=== PATIENT | female | born 1975 | race Caucasian/White ===

== ENCOUNTER 2020-02-02 10:37 | Inpatient (IN) | payer OTHER ==
--- NOTE | 2020-02-02 11:05 | BHS.RME ---
Substance Use & Tx History - Substance Use History Heroin Substance amount: 4-6 BAGS Frequency of use: Daily Substance route: Injection (ex: intravenous or skin popping) Date of Last Use: 02/01/20 Nicotine Substance amount: 5 CIGGS Frequency of use: Daily Substance route: Smoking Date of Last Use: 02/02/20 - Last Treatment Date of last treatment: 01/03-01/07/20 LEFT AMA Treatment type: Substance Use Disorder (JASPER) Where was last treatment: Detox Physical/Psych/Mental Status - Behavior General Behavior: Increased activity (restlessness, agitation) Eye Contact: Normal - Cooperativeness Cooperativeness: Cooperative - Thinking Thought Processes: Tight, Logical, Goal Directed - Physical Health Problems Is patient presently having any pain?: No Does patient presently have any injuries (include location): No Does patient currently have a fever: No Is patient : No COWS - Scale Resting Pulse: 1= [place] 81-100 Sweatin= Chills/Flushing Restless Observation: 1= Difficult to Sit Still Pupil Size: 1= Pupils >than Normal Bone or Joint Aches: 1= Mild Discomfort Runny Nose/ Eye Tearin= Runny Nose/Eyes GI Upset > 30mins: 0= None Tremor Observation: 1= Tremor [place], Not Seen Yawning Observation: 2= >3x During Session Anxiety or Irritability: 2=Irritable/Anxious Goose Flesh Skin: 3=Piloerection COWS Score: 15
--- NOTE | 2020-02-02 13:28 | HP ---
COWS - Scale Resting Pulse: 1= [place] 81-100 Sweatin= Chills/Flushing Restless Observation: 1= Difficult to Sit Still Pupil Size: 1= Pupils >than Normal Bone or Joint Aches: 1= Mild Discomfort Runny Nose/ Eye Tearin= Runny Nose/Eyes GI Upset > 30mins: 0= None Tremor Observation: 1= Tremor [place], Not Seen Yawning Observation: 2= >3x During Session Anxiety or Irritability: 2=Irritable/Anxious Goose Flesh Skin: 3=Piloerection COWS Score: 15 CIWA Score Nausea/Vomitin-No Nausea/No Vomiting Muscle Tremors: 3 Anxiety: 4-Mod. Anxious/Guarded Agitation: 2 Paroxysmal Sweats: 1-Minimal Palms Moist Orientation: 1-Uncertain about Date Tacttile Disturbances: 0-None Auditory Disturbances: 0-None Visual Disturbances: 0-None Headache: 0-None Present CIWA-Ar Total Score: 11 - Admission Criteria OASAS Guidelines: Admission for Medically Managed Detox: Requires at least one of the followin. CIWA greater than 12 2. Seizures within the past 24 hours 3. Delirium tremens within the past 24 hours 4. Hallucinations within the past 24 hours 5. Acute intervention needed for co occurring medical disorder 6. Acute intervention needed for co occurring psychiatric disorder 7. Severe withdrawal that cannot be handled at a lower level of care (continued vomiting, continued diarrhea, abnormal vital signs) requiring intravenous medication and/or fluids 8. Admitting History and Physical - Admission History of Present Illness: 44 y.o. F PMHx of asthma presenting to [facility] for detox. Patient was examined and is in no acute distress. Patient drug use consists of heroin 5 bags a day no overdoses. Xanax 6mg daily. Patient smokes 5 cigarettes a day. - Substance Use History Heroin Substance amount: 4-6 BAGS Frequency of use: Daily Substance route: Injection (ex: intravenous or skin popping) Date of Last Use: 02/01/20 Nicotine Substance amount: 5 CIGGS Frequency of use: Daily Substance route: Smoking Date of Last Use: 02/02/20 - Last Treatment Date of last treatment: 01/03-01/07/20 LEFT AMA Treatment type: Substance Use Disorder (JASPER) Where was last treatment: Detox History Source: Patient Limitations to Obtaining History: No Limitations - Past Medical History [employer]: No: Seizure Cardiovascular: No: HTN, Hyperlipdemia Pulmonary: No: Pneumonia Gastrointestinal: No: GI Bleed Hepatobiliary: No: Hepatitis A, Hepatitis B, Hepatitis C ...LMP: 11/29/19 Psych: Yes: Bipolar - Past Surgical History Past Surgical History: Yes: Hernia Repair (hernia) - Smoking History Smoking history: Current every day smoker Have you smoked in the past 12 months: Yes Aproximately how many cigarettes per day: 10 - Alcohol/Substance Use Hx Alcohol Use: No History of Substance Use: reports: Heroin - Social History Usual Living Arrangement: Yes: With Significant Other ADL: Independent Occupation: unemployed History of Recent Travel: No Admission ROS S - HPI Allergies/Adverse Reactions: Allergies Allergy/AdvReac Type Severity Reaction Status Date / Time No Known Allergies Allergy Verified 01/04/20 11:29 History of Present Illness: 44 y.o. F PMHx of asthma presenting to [facility] for detox. Patient was examined and is in no acute distress. Patient drug use consists of heroin 5 bags a day no overdoses. Xanax 6mg daily. Patient smokes 5 cigarettes a day. - Substance Use History Heroin Substance amount: 4-6 BAGS Frequency of use: Daily Substance route: Injection (ex: intravenous or skin popping) Date of Last Use: 02/01/20 Nicotine Substance amount: 5 CIGGS Frequency of use: Daily Substance route: Smoking Date of Last Use: 02/02/20 - Last Treatment Date of last treatment: 01/03-01/07/20 LEFT AMA Treatment type: Substance Use Disorder (JASPER) Where was last treatment: Detox Exam Limitations: No Limitations - Ebola screening Have you traveled outside of the country in the last 21 days: No Have you had contact with anyone from an Ebola affected area: No Have you been sick,other than usual withdrawal symptoms: No Do you have a fever: No - Review of Systems Constitutional: No Symptoms Reported EENT: denies: Blurred Vision, Double Vision Respiratory: denies: Cough, Shortness of Breath Cardiac: denies: Chest Pain, Lightheadedness GI: denies: Constipated, Diarrhea, Nausea, Vomiting : denies: Burning, Dysuria Musculoskeletal: denies: Muscle Pain, Muscle Weakness Integumentary: reports: No Symptoms Reported Neuro: reports: No Symptoms reported. denies: Headache, Dizziness Endocrine: reports: No Symptoms Reported Hematology: denies: Easy Bleeding Psychiatric: reports: No Sypmtoms Reported, Judgement Intact, Mood/Affect Appropiate, Orientated x3 Patient History - Patient Medical History Hx Asthma: Yes Hx Chronic Obstructive Pulmonary Disease (COPD): No Hx Cardiac Disorders: No Hx Hypertension: No Hx Seizures: No Hx Diabetes: No Hx Gastrointestinal Disorders: No Hx Genitourinary Disorders: No Hx Sexually Transmitted Disorders: No Hx Renal Disease (ESRD): No Hx Depression: Yes Hx Suicide Attempt: No Hx Schizophrenia: Yes - Patient Surgical History Past Surgical History: Yes Hx Section: Yes (IN 2002) Other Surgical History: HERNIA REPAIR AT AGE 19 Anesthesia Reaction: No - PPD History Date: 01/06/20 - Reproductive History Last Menstrual Period: 11/29/19 - Smoking Cessation Smoking history: Current every day smoker Have you smoked in the past 12 months: Yes Aproximately how many cigarettes per day: 10 Hx Chewing Tobacco Use: No Initiated information on smoking cessation: Yes 'Breaking Loose' booklet given: 02/02/20 Admission Physical Exam [facility] - Physical General Appearance: Yes: Within Normal Limits, No Apparent Distress, Nourished, Appropriately Dressed Respiratory: Yes: Within Normal Limits, Chest Non-Tender, Lungs Clear, Normal B reath Sounds, No Accessory Muscle Use Cardiology: Yes: Within Normal Limits, Regular Rhythm, Regular Rate. No: JVD Abdominal: Yes: Within Normal Limits, Normal Bowel Sounds, Non Tender, Flat, Soft Back: Yes: Within Normal Limits, Normal Inspection. No: CVA Tenderness Extremities: Yes: Within Normal Limits, Normal Capillary Refill, Normal Inspection, Normal Range of Motion. No: Swelling Neurological: Yes: Within Normal Limits - Diagnostic (1) Opioid withdrawal Current Visit: No Status: Acute (2) History of bipolar disorder Current Visit: No Status: Chronic Comment: As per self- report. (3) Nicotine dependence Current Visit: No Status: Chronic (4) Asthma Current Visit: Yes Status: Acute Cleared for Admission [facility] - Detox or Rehab [facility] Level of Care: Medically Managed Detox Regimen/Protocol: Methadone Breathalyzer - Breathalyzer Breathalyzer: 0 Vital Signs - Vital Signs Vital signs refused: No Temperature: 96.5 F Pulse Rate: 79 Respiratory Rate: 14 Blood Pressure: 108/70 - Height Height: 1.52 m - Weight Weight: 76.657 kg - BMI Body Mass Index (BMI): 33.0 Urine Drug Screen - Test Device Lot number: [id number] Expiration date: 08/30/21 - Control Is test valid?: Yes - Results Drug screen NEGATIVE: No Urine drug screen results: FEN-Fentanyl, MOP-Opiates, MTD-Methadone, BZO- Benzodiazepines Inpatient Rehab Admission - Rehab Decision to Admit Inpatient rehab admission?: No
[2020-02-02] MEDS ORDERED: MAGNESIUM CITRATE 300 ML BOTTLE PO PRN (13:33)
[2020-02-02] MEDS ORDERED: MAGNESIUM HYDROX 2400MG/30ML ORAL SUSPENSION 30 ML CUP PO PRN (13:33)
[2020-02-02] MEDS ORDERED: ACETAMINOPHEN 325 MG TABLET (FP) PO PRN ×2 (13:33)
[2020-02-02] MEDS ORDERED: MENTHOL/PHENOL 1 EACH UD MM PRN (13:33)
[2020-02-02] MEDS ORDERED: BISMUTH SUBSALICYLATE 524 MG/30 ML UD PO PRN (13:33)
[2020-02-02] MEDS ORDERED: MAG HYDROX/AL HYDROX/SIMETH 30 ML UNIT-DOSE CUP PO PRN (13:33)
[2020-02-02] MEDS ORDERED: diazePAM 5 MG TABLET PO PRN (13:33)
[2020-02-02] MEDS ORDERED: IBUPROFEN 400 MG TABLET (FP) PO PRN (13:33)
[2020-02-02] MEDS ORDERED: cloNIDine HCL 0.1 MG TABLET PO PRN (13:33)
[2020-02-02] MEDS ORDERED: ONDANSETRON *ODT* 4 MG TABLET SL PRN (13:33)
[2020-02-02 13:49] VITALS: BMI 24.2
[2020-02-02] MEDS ORDERED: METHADONE HCL 10 MG TABLET (FOR DETOX USE ONLY) PO ONE (14:00)
[2020-02-02] MEDS: METHOCARBAMOL 500 MG TABLET PO PRN (14:52)
[2020-02-02] MEDS: hydrOXYzine PAMOATE 25 MG CAPSULE (FP) PO SCH ×3 (14:52→22:40)
[2020-02-02] MEDS: NICOTINE POLACRILEX 2 MG GUM BUC PRN (14:52)
--- NOTE | 2020-02-02 15:42 | PN ---
Teaching Attending Note Name of Resident: Fish Osuna ATTENDING PHYSICIAN STATEMENT I saw and evaluated the patient. I reviewed the resident's note and discussed the case with the resident. I agree with the resident's findings and plan as documented. SUBJECTIVE: OBJECTIVE: ASSESSMENT AND PLAN: 44 y.o. F PMHx of asthma presenting to [facility] for detox. Patient was examined and is in no acute distress. Patient drug use consists of heroin 5 bags a day no overdoses. Xanax 6mg daily. Patient smokes 5 cigarettes a day. - Substance Use History Heroin Substance amount: 4-6 BAGS Frequency of use: Daily Substance route: Injection (ex: intravenous or skin popping) Date of Last Use: 02/01/20 Nicotine Substance amount: 5 CIGGS Frequency of use: Daily Substance route: Smoking Date of Last Use: 02/02/20 Imp 1. Opioid withdrawal 2. Sedative use disorder 3. Nicotine dependence 4. Asthma, in remission Plan 1. Methadone detox protocol 2. Valium detox for sedative use disorder 3. Nicotine dependence
[2020-02-02 17:30] LABS: HEMATOCRIT 37.5 % (32.4-45.2); HEMOGLOBIN 12.9 GM/dL (10.7-15.3); MCH 31.4 pg (25.7-33.7); MCHC 34.5 g/dl (32.0-36.0); MEAN PLT VOLUME 7.9 fl (7.5-11.1); PLATELET COUNT 355 K/MM3 (134-434); RBC 4.12 M/mm3 (3.60-5.2); RDW 14.4 % (11.6-15.6); WHITE BLOOD COUNT 5.5 K/mm3 (4.0-10.0)
[2020-02-02 17:47] LABS: ALBUMIN 3.7 g/dl (3.4-5.0); BILIRUBIN,TOTAL 0.3 mg/dL (0.2-1); BLOOD UREA NITROGEN 13.5 mg/dL (7-18); CALCIUM 9.5 mg/dL (8.5-10.1); CREATININE 0.6 mg/dL (0.55-1.3); TOT PROT 7.5 g/dl (6.4-8.2)
[2020-02-02] MEDS: diazePAM 5 MG TABLET PO SCH ×2 (19:47→22:38)
[2020-02-02] MEDS: THIAMINE HCL 100 MG TABLET (FP) PO SCH (22:38)
[2020-02-02] MEDS: MELATONIN 5 MG TABLETS PO SCH (22:39)
[2020-02-03] MEDS: hydrOXYzine PAMOATE 25 MG CAPSULE (FP) PO SCH ×5 (05:45→22:15)
[2020-02-03] MEDS: diazePAM 5 MG TABLET PO SCH ×4 (05:46→22:16)
--- NOTE | 2020-02-03 09:52 | PN ---
BHS COWS - Scale Resting Pulse: 0= NE 80 or Below Sweatin= No chills or Flushing Restless Observation: 0= Sits Still Pupil Size: 0= Normal to Room Light Bone or Joint Aches: 2= Severe Diffuse Aches Runny Nose/ Eye Tearin= None GI Upset > 30mins: 0= None Tremor Observation of Outstretched Hands: 0= None Yawning Observation: 0= None Anxiety or Irritability: 1=Feels Anxious/Irritable Goose Flesh Skin: 0=Smooth Skin COWS Score: 3 BHS Progress Note (SOAP) Subjective: Patient is a 44 y/o female admitted for heroin and benzo use. No acute complaints overnight. Objective: 02/03/20 09:50 Vital Signs Temperature 96.9 F L 02/03/20 08:35 Pulse Rate 70 02/03/20 08:35 Respiratory Rate 16 02/03/20 08:35 Blood Pressure 102/68 02/03/20 08:35 O2 Sat by Pulse Oximetry (%) 97 02/03/20 05:37 Physical Exam general: WNNL, awake, alert HEENT: hearing intact, normocephalic, EOMI Neuro: ROM intact, gait unobserved skin: intact dry CBC, BMP 02/02/20 13:40 02/02/20 13:40 Active Medications Generic Name Dose Route Start Last Admin Trade Name Freq PRN Reason Stop Dose Admin Acetaminophen 650 mg 02/02/20 13:33 Tylenol - PO Q6H PRN PAIN LEVEL 4 - 6 Acetaminophen 650 mg 02/02/20 13:33 Tylenol - PO Q6H PRN FEVER Al Hydroxide/Mg Hydroxide 30 ml 02/02/20 13:33 Mylanta Oral Suspension - PO Q6H PRN DYSPEPSIA Bismuth Subsalicylate 524 mg 02/02/20 13:33 Pepto-Bismol - PO Q1H PRN DIARRHEA Clonidine 0.1 mg 02/02/20 13:33 Catapres - PO 02/04/20 23:59 Q4H PRN Withdrawal Symptoms Diazepam 5 mg 02/02/20 17:00 02/03/20 05:46 Valium - PO 02/03/20 23:01 5 mg Q6H SARITA Administration Diazepam 5 mg 02/04/20 06:00 Valium - PO 02/04/20 22:01 TID SARITA Diazepam 5 mg 02/05/20 06:00 Valium - PO 02/05/20 18:01 Q12H SARITA Diazepam 10 mg 02/02/20 13:33 Valium - PO 02/05/20 13:32 Q4H PRN WITHDRAWAL(CONT SUBST) Diazepam 5 mg 02/06/20 06:00 Valium - PO 02/06/20 06:01 ONCE ONE Eucalyptus/Menthol/Phenol/Sorbitol 1 each 02/02/20 13:33 Cepastat Lozenge - MM 02/08/20 13:34 Q4H PRN SORE THROAT Hydroxyzine Pamoate 25 mg 02/02/20 14:00 02/03/20 05:45 Vistaril - PO 02/08/20 13:34 25 mg Q4HWA SARITA Administration Ibuprofen 400 mg 02/02/20 13:33 Motrin - PO Q6H PRN PAIN LEVEL 1 - 3 Magnesium Citrate 300 ml 02/02/20 13:33 Citroma - PO Q48H PRN CONSTIPATION Magnesium Hydroxide 30 ml 02/02/20 13:33 Milk Of Magnesia - PO PRN PRN CONSTIPATION Melatonin 5 mg 02/02/20 22:00 02/02/20 22:39 Melatonin PO 5 mg HS SARITA Administration Methadone HCl 5 mg 02/07/20 06:00 Dolophine - PO 02/07/20 06:01 ONCE@0600 ONE Methadone HCl 10 mg 02/06/20 10:00 Dolophine - PO 02/06/20 10:01 ONCE ONE Methadone HCl 20 mg 02/04/20 10:00 Dolophine - PO 02/04/20 10:01 ONCE ONE Methadone HCl 20 mg/ Methadone 25 mg 02/03/20 10:00 HCl 5 mg PO 02/03/20 10:01 ONCE ONE Methadone HCl 10 mg/ Methadone 15 mg 02/05/20 10:00 HCl 5 mg PO 02/05/20 10:01 ONCE ONE Methocarbamol 500 mg 02/02/20 13:33 02/02/20 14:52 Robaxin - PO 02/08/20 13:34 500 mg Q6H PRN Administration MUSCLE SPASMS Nicotine 7 mg 02/03/20 10:00 Nicoderm Patch - TD DAILY [facility] Nicotine Polacrilex 2 mg 02/02/20 13:33 02/02/20 14:52 Nicorette Gum - BUC 2 mg Q2H PRN Administration NICOTINE REPLACEMENT RX Ondansetron HCl 4 mg 02/02/20 13:33 Zofran Odt - SL Q8H PRN Nausea/Vomiting Multivit/Folic Acid/Iron 1 tab 02/03/20 10:00 Vitamins (Sjr) - PO DAILY SARITA Thiamine HCl 100 mg 02/02/20 22:00 02/02/20 22:38 Vitamin B1 - PO 100 mg HS SARITA Administration Assessment: 02/03/20 09:50 1. Heroin dependence with withdrawal 2. Benzo use 3. asthma Plan: 1. Continue methadone use for heroin dependence 2. Valium for benzo abuse 3. monitor for any signs of asthma exacerbation
[2020-02-03] MEDS ORDERED: METHADONE (DETOX) 20 MG, METHADONE (DETOX) 5 MG PO ONE (10:00)
[2020-02-03] MEDS ORDERED: METHADONE HCL 5 MG TABLET (FOR DETOX USE ONLY) ONE (10:03)
[2020-02-03] MEDS ORDERED: METHADONE HCL 10 MG TABLET (FOR DETOX USE ONLY) ONE (10:03)
[2020-02-03] MEDS: NICOTINE POLACRILEX 2 MG GUM BUC PRN (10:34)
[2020-02-03] MEDS: PRENATAL VITAMINS W/ FOLIC ACID TABLET (FP) PO SCH (10:34)
[2020-02-03] MEDS: NICOTINE 7 MG/24 HOURS TOPICAL PATCH TD SCH (10:36)
--- NOTE | 2020-02-03 12:42 | CONSULT ---
[facility] Psychiatric Consult - Data Date of interview: 02/03/20 Admission source: [facility] Identifying data: Readmission to [facility] at [address] [place] [address] for this 44 y/o female, self-referred for detoxification treatment. JASPER issues : heroin, xanax, nicotine. Patient is single (common-law), a mother of three, domiciled, unemployed and supported on SSI benefits. Substance Abuse History: Discussed with the patient. JASPER profile as follows : Heroin. Substance amount: 4-6 BAGS. Frequency of use: Daily. Substance route: Injection (ex: intravenous or skin popping). Date of Last Use: 02/01/20. Nicotine. Substance amount: 5 CIGGS. Frequency of use: Daily. Substance route: Smoking. Date of Last Use: 02/02/20. - Last Treatment. Date of last treatment: 01/03-01/07/20 LEFT AMA. Treatment type: Substance Use Disorder (JASPER). Where was last treatment: Detox. History Source: Patient. Limitations to Obtaining History: No LimitationsHeroin. Substance amount: 4-6 BAGS. Frequency of use: Daily. Substance route: Injection (ex: intravenous or skin popping). Date of Last Use: 02/01/20. Nicotine. Substance amount: 5 CIGGS. Frequency of use: Daily. Substance route: Smoking. Date of Last Use: 02/02/20. - Last Treatment. Date of last treatment: 01/03-01/07/20 LEFT AMA. Treatment type: Substance Use Disorder (JASPER). Where was last treatment: Detox. Exam Limitations: No Limitations. History of multiple JASPER treatment failures. Medical History: Medical profile is remarkable for bronchial asthma, antecedent of section (2002) + herniorraphy (age 19). Psychiatric History: Long standing history of mental illness. Age of onset of psychiatric illness : mid 20's. Patient endorses history of multiple psychiatric hospitalizations ([facility], [facility] : Mya-[facility] and [facility], [facility]). Diagnosed with Schizoaffective Disorder. Ms Cornelius states that she gets psychiatric OPD services at a [facility] mental health clinic located at [address] [place] [address] in the [place] (sees Dr Ramirez Choi for medication management : depakote 500 mg/bid + klonopin). Patient endorses adherence to her medications. She admits to one suicide attempt attempt, three years ago (via wrist-cutting). Physical/Sexual Abuse/Trauma History: Not discused. Patient declines. Additional Comment: Urine drug screen results: FEN-Fentanyl, MOP-Opiates, MTD- Methadone, BZO-Benzodiazepines. Noted. Mental Status Exam - Mental Status Exam Alert and Oriented to: Time, Place, Person Cognitive Function: Good Patient Appearance: Unkempt, Disheveled Mood: Withdrawn, Hopeful Affect: Appropriate, Normal Range Patient Behavior: Fatigued, Appropriate, Cooperative Speech Pattern: Clear, Appropriate Voice Loudness: Normal Thought Process: Intact, Goal Oriented Thought Disorder: Not Present Hallucinations: Denies Suicidal Ideation: Denies Homicidal Ideation: Denies Insight/Judgement: Poor Sleep: Well Appetite: Good Gait/Station: Normal Psychiatric Findings - Problem List (Robbins 1, 2,3) (1) Opioid withdrawal Current Visit: Yes Status: Acute (2) Benzodiazepine dependence Current Visit: Yes Status: Chronic (3) Nicotine dependence Current Visit: Yes Status: Chronic (4) History of bipolar disorder Current Visit: Yes Status: Chronic Comment: As per self- report. - Initial Treatment Plan Initial Treatment Plan: Psychoeducation. Sleep hygiene. Support. Patient wants to resume valproate. Depakote 500 mg po bid. Side effects/benefits are discussed with the patient. Consent granted to . Valproic acid level is requested. Observation.
[2020-02-03] MEDS: THIAMINE HCL 100 MG TABLET (FP) PO SCH (22:15)
[2020-02-03] MEDS: MELATONIN 5 MG TABLETS PO SCH (22:17)
[2020-02-03] MEDS: DIVALPROEX SODIUM 500 MG TABLET E.C. PO SCH (22:17)
[2020-02-04] MEDS: hydrOXYzine PAMOATE 25 MG CAPSULE (FP) PO SCH ×5 (06:49→22:49)
[2020-02-04] MEDS: diazePAM 5 MG TABLET PO SCH ×3 (06:49→22:49)
[2020-02-04] MEDS ORDERED: METHADONE HCL 10 MG TABLET (FOR DETOX USE ONLY) PO ONE (10:00)
[2020-02-04] MEDS: PRENATAL VITAMINS W/ FOLIC ACID TABLET (FP) PO SCH (10:28)
[2020-02-04] MEDS: NICOTINE 7 MG/24 HOURS TOPICAL PATCH TD SCH (10:28)
[2020-02-04] MEDS: DIVALPROEX SODIUM 500 MG TABLET E.C. PO SCH ×2 (10:28→22:49)
[2020-02-04] MEDS: NICOTINE POLACRILEX 2 MG GUM BUC PRN (10:29)
--- NOTE | 2020-02-04 14:30 | PN ---
[facility] CIWA - CIWA Score Nausea/Vomitin-No Nausea/No Vomiting Muscle Tremors: None Anxiety: 3 Agitation: 0-Normal Activity Paroxysmal Sweats: 3 Orientation: 0-Oriented Tacttile Disturbances: 0-None Auditory Disturbances: 0-None Visual Disturbances: 0-None Headache: 0-None Present CIWA-Ar Total Score: 6 BHS COWS - Scale Resting Pulse: 0= [place] 80 or Below Sweatin= Chills/Flushing Restless Observation: 1= Difficult to Sit Still Pupil Size: 0= Normal to Room Light Bone or Joint Aches: 2= Severe Diffuse Aches Runny Nose/ Eye Tearin= None GI Upset > 30mins: 0= None Tremor Observation of Outstretched Hands: 0= None Yawning Observation: 1= 1-2x During Session Anxiety or Irritability: 2=Irritable/Anxious Goose Flesh Skin: 0=Smooth Skin COWS Score: 7 S Progress Note (SOAP) Subjective: c/o sweats, anxiety, and body aches. Objective: 02/04/20 14:30 Vital Signs 02/04/20 02/04/20 09:01 12:42 Temperature 97.5 F L 97.0 F L Pulse Rate 70 76 Respiratory 17 18 Rate Blood Pressure 101/64 105/57 L O2 Sat by Pulse 99 Oximetry (%) Laboratory Last Values WBC 5.5 K/mm3 (4.0-10.0) 02/02/20 13:40 RBC 4.12 M/mm3 (3.60-5.2) 02/02/20 13:40 Hgb 12.9 GM/dL (10.7-15.3) 02/02/20 13:40 Hct 37.5 % (32.4-45.2) 02/02/20 13:40 MCV 91.0 fl (80-96) 02/02/20 13:40 MCH 31.4 pg (25.7-33.7) 02/02/20 13:40 MCHC 34.5 g/dl (32.0-36.0) 02/02/20 13:40 RDW 14.4 % (11.6-15.6) 02/02/20 13:40 Plt Count 355 K/MM3 (134-434) D 02/02/20 13:40 MPV 7.9 fl (7.5-11.1) 02/02/20 13:40 Sodium 140 mmol/L (136-145) 02/02/20 13:40 Potassium 4.0 mmol/L (3.5-5.1) 02/02/20 13:40 Chloride 106 mmol/L (98-107) 02/02/20 13:40 Carbon Dioxide 29 mmol/L (21-32) 02/02/20 13:40 Anion Gap 5 MMOL/L (8-16) L 02/02/20 13:40 BUN 13.5 mg/dL (7-18) 02/02/20 13:40 Creatinine 0.6 mg/dL (0.55-1.3) 02/02/20 13:40 Est GFR (CKD-EPI)AfAm 128.48 02/02/20 13:40 Est GFR (CKD-EPI)NonAf 110.86 02/02/20 13:40 Random Glucose 125 mg/dL (74-106) H 02/02/20 13:40 Calcium 9.5 mg/dL (8.5-10.1) 02/02/20 13:40 Total Bilirubin 0.3 mg/dL (0.2-1) 02/02/20 13:40 AST 10 U/L (15-37) L 02/02/20 13:40 ALT 15 U/L (13-61) 02/02/20 13:40 Alkaline Phosphatase 64 U/L (45-117) 02/02/20 13:40 Total Protein 7.5 g/dl (6.4-8.2) 02/02/20 13:40 Albumin 3.7 g/dl (3.4-5.0) 02/02/20 13:40 Valproic Acid < 3.0 ug/mL (50-100) L 02/04/20 05:50 Syphilis Serology Non-reactive (NONREACTIVE) 02/02/20 13:40 COVID-19 (RAGHAV) Not detected (Not Detected) 02/02/20 14:00 Labs noted. Assessment: 02/04/20 14:30 AOX3, in no acute respiratory distress. Full ROM, ambulating in the unit. Withdrawal symptoms. Plan: continue detox.
[2020-02-04] MEDS: METHOCARBAMOL 500 MG TABLET PO PRN (15:20)
[2020-02-04] MEDS: THIAMINE HCL 100 MG TABLET (FP) PO SCH (22:49)
[2020-02-04] MEDS: MELATONIN 5 MG TABLETS PO SCH (22:49)
[2020-02-05] MEDS: diazePAM 5 MG TABLET PO SCH ×2 (07:00→18:59)
[2020-02-05] MEDS: hydrOXYzine PAMOATE 25 MG CAPSULE (FP) PO SCH ×5 (07:00→22:34)
--- NOTE | 2020-02-05 09:05 | PN ---
[facility] CIWA - CIWA Score Nausea/Vomitin-Mild Nausea/No Vomiting Muscle Tremors: 1-None Visible, but [place] Anxiety: 1-Mildly Anxious Agitation: 0-Normal Activity Paroxysmal Sweats: No Perspiration Orientation: 0-Oriented Tacttile Disturbances: 0-None Auditory Disturbances: 0-None Visual Disturbances: 1-Very Mild Sensitivity Headache: 1-Very Mild CIWA-Ar Total Score: 5 BHS COWS - Scale Resting Pulse: 0= [place] 80 or Below Sweatin= No chills or Flushing Restless Observation: 0= Sits Still Pupil Size: 0= Normal to Room Light Bone or Joint Aches: 1= Mild Discomfort Runny Nose/ Eye Tearin= None GI Upset > 30mins: 2= Nausea/Diarrhea Tremor Observation of Outstretched Hands: 1= Tremor [place], Not Seen Yawning Observation: 0= None Anxiety or Irritability: 1=Feels Anxious/Irritable Goose Flesh Skin: 0=Smooth Skin COWS Score: 5 S Progress Note (SOAP) Subjective: 44 years old female was admitted on 02/02/20 for benzo and opiate withdrawal sx management treating with valium and methadone detox regiments ate breakfast in room resting in bed comfortably discussing aftercare with staff ms keane prefers [facility] for benzo and opiate abuse treatment Objective: 02/05/20 09:07 Vital Signs - 24 hr 02/04/20 02/04/20 02/04/20 12:42 16:58 20:54 Temperature 97.0 F L 97.3 F L 98.1 F Pulse Rate 76 887 H 75 Respiratory 18 18 18 Rate Blood Pressure 105/57 L 109/71 104/68 O2 Sat by Pulse 99 95 Oximetry (%) 02/05/20 06:27 Temperature 97.1 F L Pulse Rate 70 Respiratory 18 Rate Blood Pressure 103/64 O2 Sat by Pulse 98 Oximetry (%) Laboratory Tests 02/02/20 02/02/20 02/02/20 13:40 13:40 13:40 WBC 5.5 RBC 4.12 Hgb 12.9 Hct 37.5 MCV 91.0 MCH 31.4 MCHC 34.5 RDW 14.4 Plt Count 355 D MPV 7.9 Sodium 140 Potassium 4.0 Chloride 106 Carbon Dioxide 29 Anion Gap 5 L BUN 13.5 Creatinine 0.6 Est GFR (CKD-EPI)AfAm 128.48 Est GFR (CKD-EPI)NonAf 110.86 Random Glucose 125 H Calcium 9.5 Total Bilirubin 0.3 AST 10 L ALT 15 Alkaline Phosphatase 64 Total Protein 7.5 Albumin 3.7 Valproic Acid Syphilis Serology Non-reactive COVID-19 (RAGHAV) 02/02/20 02/04/20 14:00 05:50 WBC RBC Hgb Hct MCV MCH MCHC RDW Plt Count MPV Sodium Potassium Chloride Carbon Dioxide Anion Gap BUN Creatinine Est GFR (CKD-EPI)AfAm Est GFR (CKD-EPI)NonAf Random Glucose Calcium Total Bilirubin AST ALT Alkaline Phosphatase Total Protein Albumin Valproic Acid < 3.0 L Syphilis Serology COVID-19 (RAGHAV) Not detected 02/05/20 09:10 glucose elevation 02/05/20 09:12 fasting glucose pending Assessment: 02/05/20 09:12 benzo and opiate withdrawal Plan: valium and methadone regiments
[2020-02-05] MEDS ORDERED: METHADONE HCL 10 MG TABLET (FOR DETOX USE ONLY) ONE (09:14)
[2020-02-05] MEDS ORDERED: METHADONE HCL 5 MG TABLET (FOR DETOX USE ONLY) ONE (09:14)
[2020-02-05] MEDS ORDERED: METHADONE (DETOX) 10 MG, METHADONE (DETOX) 5 MG PO ONE (10:00)
[2020-02-05] MEDS: PRENATAL VITAMINS W/ FOLIC ACID TABLET (FP) PO SCH (10:32)
[2020-02-05] MEDS: DIVALPROEX SODIUM 500 MG TABLET E.C. PO SCH ×2 (10:32→22:33)
[2020-02-05] MEDS: NICOTINE 7 MG/24 HOURS TOPICAL PATCH TD SCH (10:33)
[2020-02-05] MEDS: NICOTINE POLACRILEX 2 MG GUM BUC PRN (10:33)
[2020-02-05] MEDS: METHOCARBAMOL 500 MG TABLET PO PRN ×2 (14:45→22:35)
[2020-02-05] MEDS: MELATONIN 5 MG TABLETS PO SCH (22:33)
[2020-02-05] MEDS: THIAMINE HCL 100 MG TABLET (FP) PO SCH (22:33)
[2020-02-06] MEDS ORDERED: diazePAM 5 MG TABLET PO ONE (06:00)
[2020-02-06] MEDS: hydrOXYzine PAMOATE 25 MG CAPSULE (FP) PO SCH ×5 (06:37→22:36)
--- NOTE | 2020-02-06 09:16 | PN ---
[facility] CIWA - CIWA Score Nausea/Vomitin-Mild Nausea/No Vomiting Muscle Tremors: 1-None Visible, but [place] Anxiety: 1-Mildly Anxious Agitation: 0-Normal Activity Paroxysmal Sweats: No Perspiration Orientation: 0-Oriented Tacttile Disturbances: 0-None Auditory Disturbances: 0-None Visual Disturbances: 0-None Headache: 1-Very Mild CIWA-Ar Total Score: 4 S COWS - Scale Resting Pulse: 1= [place] 81-100 Sweatin= No chills or Flushing Restless Observation: 0= Sits Still Pupil Size: 0= Normal to Room Light Bone or Joint Aches: 1= Mild Discomfort Runny Nose/ Eye Tearin= None GI Upset > 30mins: 0= None Tremor Observation of Outstretched Hands: 1= Tremor [place], Not Seen Yawning Observation: 0= None Anxiety or Irritability: 1=Feels Anxious/Irritable Goose Flesh Skin: 0=Smooth Skin COWS Score: 4 S Progress Note (SOAP) Subjective: 44 years old female was admitted on 02/02/20 for benzo and opiate withdrawal sx management treating with valium and methadone detox regiments feels better today ate breakfast and tolerated food well 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 upon discharge mr keane prefers to go to [facility] for benzo and opiate abuse treatment Objective: 02/06/20 09:20 Vital Signs - 24 hr 02/05/20 02/05/20 02/05/20 12:19 16:44 20:40 Temperature 97.3 F L 97.5 F L 97.7 F Pulse Rate 76 81 86 Respiratory 18 17 18 Rate Blood Pressure 124/76 97/61 103/47 L O2 Sat by Pulse 98 97 Oximetry (%) 02/06/20 05:42 Temperature 97.5 F L Pulse Rate 85 Respiratory 18 Rate Blood Pressure 90/60 O2 Sat by Pulse 96 Oximetry (%) Vital Signs - 24 hr Laboratory Tests 02/02/20 02/02/20 02/02/20 13:40 13:40 13:40 WBC 5.5 RBC 4.12 Hgb 12.9 Hct 37.5 MCV 91.0 MCH 31.4 MCHC 34.5 RDW 14.4 Plt Count 355 D MPV 7.9 Sodium 140 Potassium 4.0 Chloride 106 Carbon Dioxide 29 Anion Gap 5 L BUN 13.5 Creatinine 0.6 Est GFR (CKD-EPI)AfAm 128.48 Est GFR (CKD-EPI)NonAf 110.86 Random Glucose 125 H Calcium 9.5 Total Bilirubin 0.3 AST 10 L ALT 15 Alkaline Phosphatase 64 Total Protein 7.5 Albumin 3.7 Valproic Acid Syphilis Serology Non-reactive COVID-19 (RAGHAV) 02/02/20 02/04/20 14:00 05:50 WBC RBC Hgb Hct MCV MCH MCHC RDW Plt Count MPV Sodium Potassium Chloride Carbon Dioxide Anion Gap BUN Creatinine Est GFR (CKD-EPI)AfAm Est GFR (CKD-EPI)NonAf Random Glucose Calcium Total Bilirubin AST ALT Alkaline Phosphatase Total Protein Albumin Valproic Acid < 3.0 L Syphilis Serology COVID-19 (RAGHAV) Not detected fasting pendng 02/06/20 09:21 Assessment: 02/06/20 09:22 benzo and opiate withdrawal Plan: valium and methadone regiments
[2020-02-06] MEDS ORDERED: METHADONE HCL 10 MG TABLET (FOR DETOX USE ONLY) PO ONE (10:00)
[2020-02-06] MEDS: PRENATAL VITAMINS W/ FOLIC ACID TABLET (FP) PO SCH (10:12)
[2020-02-06] MEDS: NICOTINE 7 MG/24 HOURS TOPICAL PATCH TD SCH (10:13)
[2020-02-06] MEDS: DIVALPROEX SODIUM 500 MG TABLET E.C. PO SCH ×2 (10:14→22:37)
[2020-02-06] MEDS: NICOTINE POLACRILEX 2 MG GUM BUC PRN (18:05)
[2020-02-06] MEDS: MELATONIN 5 MG TABLETS PO SCH (22:36)
[2020-02-06] MEDS: THIAMINE HCL 100 MG TABLET (FP) PO SCH (22:36)
[2020-02-07] MEDS: hydrOXYzine PAMOATE 25 MG CAPSULE (FP) PO SCH (05:59)
[2020-02-07] MEDS ORDERED: METHADONE HCL 5 MG TABLET (FOR DETOX USE ONLY) PO ONE (06:00)
--- NOTE | 2020-02-07 09:08 | DS ---
[facility] Detox Discharge Summary Admission Date: 02/02/20 Discharge Date: 02/07/20 - History Present History: Opioid Dependence, Sedative Dependence Additional Comments: 44 years old female was admitted on 02/02/20 for benzo and opiate withdrawal sx management treated with valium and methadone detox regiments seen by psychiatrist kary borden ms keane has completed the valium and methadone regiments and is tolerated well General Appearance: Yes: Within Normal Limits, No Apparent Distress, Nourished, Appropriately Dressed Respiratory: Yes: Within Normal Limits, Chest Non-Tender, Lungs Clear, Normal B reath Sounds, No Accessory Muscle Use Cardiology: Yes: Within Normal Limits, Regular Rhythm, Regular Rate. No: JVD Abdominal: Yes: Within Normal Limits, Normal Bowel Sounds, Non Tender, Flat, Soft Back: Yes: Within Normal Limits, Normal Inspection. No: CVA Tenderness Extremities: Yes: Within Normal Limits, Normal Capillary Refill, Normal Inspection, Normal Range of Motion. No: Swelling Neurological: Yes: Within Normal Limits Pertinent Past History: time for discharge 44 minutes transferred order set from detox to rehab - Physical Exam Results Vital Signs: Vital Signs Temperature 97.1 F L 02/07/20 06:12 Pulse Rate 69 02/07/20 06:12 Respiratory Rate 16 02/07/20 06:12 Blood Pressure 100/57 L 02/07/20 06:12 O2 Sat by Pulse Oximetry (%) 96 02/07/20 06:12 Pertinent Admission Physical Exam Findings: benzo and opiate withdrawal Laboratory Tests 02/02/20 02/02/20 02/02/20 13:40 13:40 13:40 WBC 5.5 RBC 4.12 Hgb 12.9 Hct 37.5 MCV 91.0 MCH 31.4 MCHC 34.5 RDW 14.4 Plt Count 355 D MPV 7.9 Sodium 140 Potassium 4.0 Chloride 106 Carbon Dioxide 29 Anion Gap 5 L BUN 13.5 Creatinine 0.6 Est GFR (CKD-EPI)AfAm 128.48 Est GFR (CKD-EPI)NonAf 110.86 Random Glucose 125 H Fasting Glucose Calcium 9.5 Total Bilirubin 0.3 AST 10 L ALT 15 Alkaline Phosphatase 64 Total Protein 7.5 Albumin 3.7 Valproic Acid Syphilis Serology Non-reactive COVID-19 (RAGHAV) 02/02/20 02/04/20 02/06/20 14:00 05:50 07:40 WBC RBC Hgb Hct MCV MCH MCHC RDW Plt Count MPV Sodium Potassium Chloride Carbon Dioxide Anion Gap BUN Creatinine Est GFR (CKD-EPI)AfAm Est GFR (CKD-EPI)NonAf Random Glucose Fasting Glucose 101 Calcium Total Bilirubin AST ALT Alkaline Phosphatase Total Protein Albumin Valproic Acid < 3.0 L Syphilis Serology COVID-19 (RAGHAV) Not detected fasting glucose within normal range - Treatment Hospital Course: Detox Protocol Followed, Detoxed Safely, Responded well, Discharged Condition Good, Rehab Referral Accepted Patient has Accepted a Re[facility] Referral to: [facility] - Medication Discharge Medications: Ambulatory Orders Albuterol Sulfate Inhaler - [Ventolin HFA Inhaler -] 2 inh PO Q4H PRN #1 inhaler 02/06/20 Naloxone HCl [Narcan] 4 mg NS ASDIR PRN #1 spray 02/06/20 - Diagnosis (1) Substance induced mood disorder Current Visit: Yes Status: Suspected (2) Asthma Current Visit: Yes Status: Chronic Qualifiers: Asthma severity: mild Asthma persistence: intermittent Asthma complication type: with status asthmaticus Qualified Code(s): J45.22 - Mild intermittent asthma with status asthmaticus (3) Opioid withdrawal Current Visit: Yes Status: Acute (4) Benzodiazepine dependence Current Visit: Yes Status: Acute (5) Nicotine dependence Current Visit: Yes Status: Acute Qualifiers: Nicotine product type: cigarettes Substance use status: in withdrawal Qualified Code(s): F17.213 - Nicotine dependence, cigarettes, with withdrawal - AMA Did Patient Leave Against Medical Advice: No CIWA Score - CIWA Score Nausea/Vomitin-Mild Nausea/No Vomiting Muscle Tremors: 1-None Visible, but [place] Anxiety: 0-No Anxiety, at Ease Agitation: 0-Normal Activity Paroxysmal Sweats: No Perspiration Orientation: 0-Oriented Tacttile Disturbances: 0-None Auditory Disturbances: 0-None Visual Disturbances: 0-None Headache: 0-None Present CIWA-Ar Total Score: 2 COWS (PN) - Opiate Withdrawal Resting Pulse: 0= [place] 80 or Below Sweatin= No chills or Flushing Restless Observation: 0= Sits Still Pupil Size: 0= Normal to Room Light Bone or Joint Aches: 1= Mild Discomfort Runny Nose/ Eye Tearin= None GI Upset > 30mins: 0= None Tremor Observation of Outstretched Hands: 1= Tremor [place], Not Seen Yawning Observation: 0= None Anxiety or Irritability: 1=Feels Anxious/Irritable Goose Flesh Skin: 0=Smooth Skin COWS Score: 3
[2020-02-07 10:06] VITALS: BP 102/64; PULSE 75; TEMP 96.6
== END 2020-02-07 09:28 | disposition home or self-care (01) | DRG 773 ==
LOC: YASAS 10:37 → Y3N 13:59
PROVIDERS: ADMIT Allergy & Immunology; ATTEND Allergy & Immunology
PROC: HZ2ZZZZ Detoxification Services for Substance Abuse Treatment (ICD-10-PCS; principal; 2020-02-02)
DX: F11.23 Opioid dependence with withdrawal (principal); F13.230 Sedative, hypnotic or anxiolytic dependence with withdrawal, uncomplicated; F17.210 Nicotine dependence, cigarettes, uncomplicated; F25.9 Schizoaffective disorder, unspecified; F19.24 Other psychoactive substance dependence with psychoactive substance-induced mood disorder; J45.909 Unspecified asthma, uncomplicated; Z91.5 Personal history of self-harm; Z86.59 Personal history of other mental and behavioral disorders
CPT/HCPCS: 36415; 80053; 80164; 82947; 85027; 86780; U0003

== ENCOUNTER 2020-09-19 18:19 | Inpatient (IN) | payer OTHER ==
[~2020-09-19 18:19] MED LIST: ACETAMINOPHEN 325 MG TABLET (FP) PO PRN; ALBUTEROL SO4 HFA INHALER IH PRN; IBUPROFEN 400 MG TABLET (FP) PO PRN; LOPERAMIDE HCL 2 MG CAPSULE PO PRN; MAG HYDROX/AL HYDROX/SIMETH 30 ML UNIT-DOSE CUP PO PRN; MAGNESIUM CITRATE 300 ML BOTTLE PO PRN; MAGNESIUM HYDROX 2400MG/30ML ORAL SUSPENSION 30 ML CUP PO PRN; MELATONIN 5 MG TABLETS PO SCH; NICOTINE POLACRILEX 2 MG GUM BC PRN; P-EPHED 60MG/TRIPROLIDI 2.5MG TABLET PO PRN; THIAMINE HCL 100 MG TABLET (FP) PO SCH; guaiFENesin 200 MG/10 ML 10 ML UNIT-DOSE CUPS PO PRN
[2020-09-19 19:37] VITALS: BMI 22.9
[2020-09-19] MEDS ORDERED: MAG HYDROX/AL HYDROX/SIMETH 30 ML UNIT-DOSE CUP PO PRN (19:48)
[2020-09-19] MEDS ORDERED: NICOTINE POLACRILEX 4 MG GUM BUC PRN (19:48)
[2020-09-19] MEDS ORDERED: ACETAMINOPHEN 325 MG TABLET (FP) PO PRN ×2 (19:48)
[2020-09-19] MEDS ORDERED: ONDANSETRON *ODT* 4 MG TABLET SL PRN (19:48)
[2020-09-19] MEDS ORDERED: BISMUTH SUBSALICYLATE 524 MG/30 ML PO PRN (19:48)
[2020-09-19] MEDS ORDERED: METHOCARBAMOL 500 MG TABLET PO PRN (19:48)
[2020-09-19] MEDS ORDERED: MAGNESIUM HYDROX 2400MG/30ML ORAL SUSPENSION 30 ML CUP PO PRN (19:48)
[2020-09-19] MEDS ORDERED: MENTHOL/PHENOL 1 EACH UD MM PRN (19:48)
[2020-09-19] MEDS ORDERED: METHADONE HCL 10 MG TABLET (FOR DETOX USE ONLY) PO ONE (19:55)
[2020-09-19] MEDS ORDERED: cloNIDine HCL 0.1 MG TABLET PO PRN (19:55)
[2020-09-19] MEDS: VALPROATE SODIUM 250 MG/5 ML UNIT DOSE CUP PO SCH (21:08)
[2020-09-19] MEDS: NICOTINE 7 MG/24 HOURS TOPICAL PATCH TD SCH (21:09)
[2020-09-19] MEDS: PRENATAL VITAMINS W/ FOLIC ACID TABLET (FP) PO SCH (21:09)
[2020-09-19] MEDS: BACITRACIN 0.9 GM PACKET TP SCH (22:49)
[2020-09-19] MEDS: MELATONIN 5 MG TABLETS PO SCH (22:49)
[2020-09-19] MEDS: THIAMINE HCL 100 MG TABLET (FP) PO SCH (22:49)
[2020-09-19] MEDS: hydrOXYzine PAMOATE 25 MG CAPSULE (FP) PO SCH (22:49)
[2020-09-20] MEDS: hydrOXYzine PAMOATE 25 MG CAPSULE (FP) PO SCH ×6 (05:56→22:01)
[2020-09-20] MEDS ORDERED: METHADONE HCL 5 MG TABLET (FOR DETOX USE ONLY) ONE (08:56)
[2020-09-20] MEDS ORDERED: METHADONE HCL 10 MG TABLET (FOR DETOX USE ONLY) ONE (08:56)
[2020-09-20] MEDS ORDERED: METHADONE (DETOX) 20 MG, METHADONE (DETOX) 5 MG PO ONE (10:00)
[2020-09-20] MEDS: PRENATAL VITAMINS W/ FOLIC ACID TABLET (FP) PO SCH (10:07)
[2020-09-20] MEDS: BACITRACIN 0.9 GM PACKET TP SCH ×2 (10:07→22:01)
[2020-09-20] MEDS: NICOTINE 21 MG/24 HOURS TOPICAL PATCH TD SCH (10:07)
[2020-09-20 10:15] LABS: HEMATOCRIT 35.7 % (32.4-45.2); MCHC 33.4 g/dl (32.0-36.0); MEAN CELL VOLUME 92.6 fl (80-96); MEAN PLT VOLUME 7.6 fl (7.5-11.1); PLATELET COUNT 347 K/MM3 (134-434); RBC 3.86 M/mm3 (3.60-5.2); RDW 14.8 % (11.6-15.6); WHITE BLOOD COUNT 4.7 K/mm3 (4.0-10.0)
[2020-09-20 10:18] LABS: CALCIUM 9.2 mg/dL (8.5-10.1)
[2020-09-20 10:20] LABS: ALBUMIN 2.9 g/dl (3.4-5.0); BLOOD UREA NITROGEN 17.7 mg/dL (7-18)
[2020-09-20 10:23] LABS: CREATININE 0.6 mg/dL (0.55-1.3)
[2020-09-20 10:24] LABS: BILIRUBIN,TOTAL 0.3 mg/dL (0.2-1); TOT PROT 6.2 g/dl (6.4-8.2)
[2020-09-20] MEDS: GABAPENTIN 100 MG CAPSULE PO SCH ×2 (14:41→22:01)
[2020-09-20] MEDS: MELATONIN 5 MG TABLETS PO SCH (22:01)
[2020-09-20] MEDS: THIAMINE HCL 100 MG TABLET (FP) PO SCH (22:01)
[2020-09-21] MEDS: hydrOXYzine PAMOATE 25 MG CAPSULE (FP) PO SCH ×3 (06:03→14:05)
[2020-09-21] MEDS: GABAPENTIN 100 MG CAPSULE PO SCH ×2 (06:03→14:05)
[2020-09-21] MEDS ORDERED: METHADONE HCL 10 MG TABLET (FOR DETOX USE ONLY) PO ONE (10:00)
[2020-09-21] MEDS: NICOTINE 21 MG/24 HOURS TOPICAL PATCH TD SCH (10:12)
[2020-09-21] MEDS: BACITRACIN 0.9 GM PACKET TP SCH (10:12)
[2020-09-21] MEDS: PRENATAL VITAMINS W/ FOLIC ACID TABLET (FP) PO SCH (10:13)
[2020-09-21 14:24] VITALS: BP 107/69; PULSE 72; TEMP 97.3
[2020-09-22 06:06] LABS: SARS-CoV-2 NAA Not Detected (Not Detected)
[2020-09-22] MEDS ORDERED: METHADONE (DETOX) 10 MG, METHADONE (DETOX) 5 MG PO ONE (10:00)
[2020-09-23] MEDS ORDERED: METHADONE HCL 10 MG TABLET (FOR DETOX USE ONLY) PO ONE (10:00)
[2020-09-24] MEDS ORDERED: METHADONE HCL 5 MG TABLET (FOR DETOX USE ONLY) PO ONE (06:00)
== END 2020-09-21 14:57 | disposition left against medical advice (07) | DRG 770 ==
LOC: YASAS 18:19 → Y6N 19:31
PROVIDERS: ADMIT Allergy & Immunology; ATTEND Allergy & Immunology
PROC: HZ2ZZZZ Detoxification Services for Substance Abuse Treatment (ICD-10-PCS; principal; 2020-09-19)
DX: F11.23 Opioid dependence with withdrawal (principal); F13.20 Sedative, hypnotic or anxiolytic dependence, uncomplicated; F14.20 Cocaine dependence, uncomplicated; F17.210 Nicotine dependence, cigarettes, uncomplicated; F19.282 Other psychoactive substance dependence with psychoactive substance-induced sleep disorder; F31.9 Bipolar disorder, unspecified; J45.20 Mild intermittent asthma, uncomplicated; Z98.890 Other specified postprocedural states
CPT/HCPCS: 36415; 80053; 81025; 85027; 86780; C9803; Q0162; U0003; U0005

== ENCOUNTER 2024-04-04 11:28 | Inpatient (IN) | payer OTHER ==
[2024-04-04 12:00] VITALS: BMI 23.4
[2024-04-04] MEDS ORDERED: ONDANSETRON *ODT* 4 MG TABLET SL PRN (13:58)
[2024-04-04] MEDS ORDERED: NALOXONE (NYS OPIOID OVERDOSE PROGRAM) 4 MG/0.1 ML SPRAY NS PRN (13:58)
[2024-04-04] MEDS ORDERED: LOPERAMIDE HCL 2 MG CAPSULE PO PRN (13:58)
[2024-04-04] MEDS ORDERED: MAG HYDROX/AL HYDROX/SIMETH 30 ML UNIT-DOSE CUP PO PRN (13:58)
[2024-04-04] MEDS ORDERED: DICYCLOMINE HCL 10 MG CAPSULE PO PRN (13:58)
[2024-04-04] MEDS ORDERED: POLYETHYLENE GLYCOL (HEALTHYLAX) 3350 17 GM PACKET PO PRN (13:58)
[2024-04-04] MEDS ORDERED: BISMUTH SUBSALICYLATE 262 MG/15 ML BTL PO PRN (13:58)
[2024-04-04] MEDS ORDERED: BENZOCAINE/MENTHOL (CHLORASEPTIC ) LOZENGE MM PRN (13:58)
[2024-04-04] MEDS ORDERED: MAGNESIUM HYDROX 2400MG/30ML ORAL SUSPENSION 30 ML CUP PO PRN (13:58)
[2024-04-04] MEDS ORDERED: NALOXONE (NARCAN) HCL 4 MG/0.1 ML SPRAY NS PRN (13:58)
[2024-04-04] MEDS ORDERED: IBUPROFEN 400 MG TABLET (FP) PO PRN (13:58)
[2024-04-04] MEDS ORDERED: guaiFENesin 600 MG TABLET.ER (FP) PO PRN (13:58)
[2024-04-04] MEDS ORDERED: BENZONATATE 200 MG CAPSULE PO PRN (13:58)
[2024-04-04] MEDS: PRENATAL VITAMINS W/ FOLIC ACID TABLET (FP) PO SCH (14:34)
[2024-04-04] MEDS ORDERED: ALBUTEROL SO4 HFA INHALER IH PRN (14:49)
[2024-04-04] MEDS: NICOTINE 14 MG/24 HOURS TOPICAL PATCH TD SCH (16:02)
[2024-04-04] MEDS: THIAMINE 100 MG TABLET PO SCH (21:52)
[2024-04-04] MEDS: MELATONIN 5 MG TABLETS PO SCH (21:52)
[2024-04-05] MEDS: methaDONE HCL 10 MG TABLET (FOR DETOX USE ONLY) PO ONE (08:36)
[2024-04-05] MEDS: ACETAMINOPHEN 325 MG TABLET (FP) PO PRN (10:05)
[2024-04-05] MEDS: hydrOXYzine PAMOATE 25 MG CAPSULE (FP) PO PRN (10:08)
[2024-04-05 11:16] LABS: HEMATOCRIT 35.5 % (32.4-45.2); HEMOGLOBIN 12.3 GM/dL (10.7-15.3); MCH 31.6 pg (25.7-33.7); MCHC 34.6 g/dl (32.0-36.0); MEAN CELL VOLUME 91.2 fl (80-96); MEAN PLT VOLUME 7.7 fl (7.5-11.1); PLATELET COUNT 382 10^3/uL (134-434); RBC 3.89 M/mm3 (3.60-5.2); WHITE BLOOD COUNT 8.8 K/mm3 (4.0-10.0)
[2024-04-05] MEDS: IBUPROFEN 600 MG TABLET (FP) PO PRN (13:06)
[2024-04-05] MEDS ORDERED: BENZOCAINE 20 % GEL TUBE MM PRN (13:09)
[2024-04-05 13:50] LABS: POTASSIUM 3.7 mmol/L (3.5-5.1)
[2024-04-05 13:52] LABS: CALCIUM 9.4 mg/dL (8.5-10.1)
[2024-04-05 13:53] LABS: ALBUMIN 3.2 g/dl (3.4-5.0)
[2024-04-05 13:56] LABS: CREATININE 1.3 mg/dL (0.55-1.3)
[2024-04-05 13:57] LABS: BILIRUBIN,TOTAL 0.2 mg/dL (0.2-1); TOT PROT 6.3 g/dl (6.4-8.2)
[2024-04-05] MEDS: cloNIDine HCL 0.1 MG TABLET PO PRN (17:33)
[2024-04-05] MEDS: METHOCARBAMOL 500 MG TABLET PO PRN (22:20)
[2024-04-06] MEDS: METHOCARBAMOL 500 MG TABLET PO PRN (10:31)
[2024-04-06 12:43] LABS: HIV INTERPRETATION NEGATIVE (NEGATIVE)
[2024-04-06 13:16] LABS: BASO % 1.1 % (0-2.0); EOS % 8.3 % (0-4.5); HEMATOCRIT 31.1 % (32.4-45.2); HEMOGLOBIN 10.6 GM/dL (10.7-15.3); LYMPH % 26.9 % (8-40); MCH 31.5 pg (25.7-33.7); MEAN CELL VOLUME 92.7 fl (80-96); MEAN PLT VOLUME 7.8 fl (7.5-11.1); NEUT % 54.7 % (42.8-82.8); PLATELET COUNT 337 10^3/uL (134-434); RBC 3.35 M/mm3 (3.60-5.2); RDW 13.7 % (11.6-15.6); WHITE BLOOD COUNT 6.6 K/mm3 (4.0-10.0)
[2024-04-06 13:45] LABS: POTASSIUM 3.7 mmol/L (3.5-5.1)
[2024-04-06 13:47] LABS: ALBUMIN 2.7 g/dl (3.4-5.0); BLOOD UREA NITROGEN 28.1 mg/dL (7-18); CALCIUM 8.3 mg/dL (8.5-10.1)
[2024-04-06 13:51] LABS: CREATININE 1.4 mg/dL (0.55-1.3)
[2024-04-06 13:52] LABS: BILIRUBIN,TOTAL 0.1 mg/dL (0.2-1)
[2024-04-06 13:53] LABS: TOT PROT 5.2 g/dl (6.4-8.2)
[2024-04-07] MEDS: methaDONE HCL 10 MG TABLET (FOR DETOX USE ONLY) PO ONE (09:19)
[2024-04-09] MEDS: methaDONE HCL 10 MG TABLET (FOR DETOX USE ONLY) PO ONE (10:24)
[2024-04-10 06:07] VITALS: RESP 16
[2024-04-10] MEDS: NALOXONE (NYS OPIOID OVERDOSE PROGRAM) 4 MG/0.1 ML SPRAY NS SCH (09:09)
[2024-04-10 09:54] VITALS: BP 105/65; PULSE 80; TEMP 98.2
== END 2024-04-10 10:28 | disposition home or self-care (01) | DRG 773 ==
LOC: YASAS 11:28 → Y3N 14:14
PROVIDERS: ADMIT Allergy & Immunology; ATTEND Surgery
PROC: HZ2ZZZZ Detoxification Services for Substance Abuse Treatment (ICD-10-PCS; principal; 2024-04-09)
DX: F11.23 Opioid dependence with withdrawal (principal); F14.20 Cocaine dependence, uncomplicated; F13.20 Sedative, hypnotic or anxiolytic dependence, uncomplicated; F17.210 Nicotine dependence, cigarettes, uncomplicated; F19.282 Other psychoactive substance dependence with psychoactive substance-induced sleep disorder; F31.9 Bipolar disorder, unspecified; F25.9 Schizoaffective disorder, unspecified; J45.20 Mild intermittent asthma, uncomplicated
CPT/HCPCS: 36415; 80053; 80305; 80307; 81025; 83036; 85025; 85027; 86780; 86803; 87340; 87389; 93005; 93010